=== PATIENT | female | born 1975 | race African-American/Black ===

== ENCOUNTER 2016-12-20 07:20 | Emergency (ER) | payer MEDICAID ==
[~2016-12-20] VITALS: Ht 167.6 cm; Wt 105.0 kg
[2016-12-20] MEDS ORDERED: SODIUM CHLORIDE 0.9% 100 ML IV ONE (08:45)
[2016-12-20] MEDS ORDERED: KETOROLAC 30MG/ML VIAL IV ONE (08:45)
[2016-12-20] MEDS ORDERED: METOCLOPRAMIDE HCL 10MG/2ML VIAL IV ONE (08:45)
[2016-12-20] MEDS ORDERED: SODIUM CHLORIDE 0.9% 1,000 ML IV ONE (09:15)
[2016-12-20 11:41] VITALS: BP 127/73
== END 2016-12-20 11:43 | disposition home or self-care (01) ==
LOC: ER 09:01
DX: G43.909 Migraine, unspecified, not intractable, without status migrainosus (principal)
CPT/HCPCS: 96361; 96374; 96375; 99285; J1885; J2765; J7030; Z7610; J7050

== ENCOUNTER 2017-07-30 09:38 | Emergency (ER) | payer SELFPAY ==
[~2017-07-30] VITALS: Ht 167.6 cm; Wt 114.0 kg
[2017-07-30 12:11] LABS: BASOPHILS % 0.2 % (0.0-2.0); EOSINOPHILS % 0.8 % (0.0-5.0); HEMATOCRIT. 43.7 % (36.0-48.0); HEMOGLOBIN. 15.1 g/dL (12.0-16.0); LYMPHOCYTES % 10.3 % (20.0-50.0); MEAN CORPUSCULAR HEMOGLOBIN 31.3 pg (28.0-32.0); MEAN CORPUSCULAR VOLUME 90.8 fL (81.0-99.0); MEAN PLATELET VOLUME 8.2 fl (7.4-10.4); MONOCYTES % 3.9 % (2.0-8.0); NEUTROPHILS % 84.8 % (40.0-76.0); PLATELET 341 x1000/uL (130-400); RED BLOOD CELL COUNT 4.81 mill/uL (4.2-5.4); RED CELL DISTRIBUTION WIDTH 12.7 % (11.6-14.6)
[2017-07-30 12:16] LABS: CHLORIDE 105 mEq/L (98-107)
[2017-07-30 12:22] LABS: PROTHROMBIN TIME 10.4 sec (9.4-11.6)
[2017-07-30] MEDS ORDERED: MAGNESIUM/ALUMINUM HYDROXIDE/SIMETHICONE 30ML UDC PO STA (13:50)
[2017-07-30] MEDS ORDERED: SODIUM CHLORIDE 0.9% 1,000 ML IV ONE (13:50)
[2017-07-30] MEDS ORDERED: ONDANSETRON HCL 4MG/2ML VIAL IV STA (13:50)
[2017-07-30 17:04] VITALS: BP 150/87
== END 2017-07-30 17:04 | disposition home or self-care (01) ==
LOC: ER 09:48
DX: R10.13 Epigastric pain (principal); R11.2 Nausea with vomiting, unspecified; R19.7 Diarrhea, unspecified; I10 Essential (primary) hypertension; Z91.013 Allergy to seafood; Z91.09 Other allergy status, other than to drugs and biological substances; Z90.710 Acquired absence of both cervix and uterus
CPT/HCPCS: 36415; 80053; 83690; 85025; 85610; 96361; 96374; 99284; J2405; J7030